=== PATIENT | male | born 1965 | race Caucasian/White ===

== ENCOUNTER 2016-05-11 13:59 | Inpatient (IN) | payer OTHER ==
[2016-05-11 17:07] VITALS: BMI 27.4
--- NOTE | 2016-05-11 18:15 | HP ---
Admission [facility] Chief Complaint: I AM HERE FOR REHAB FROM XANAX AND COCAINE,MMTP 110 MGS/DAY,LAST MEDICATED TODAY BIPOLAR DISORDER 1 NICOTINE DEPENDENCE DISCHARGE FROM [place] TODAY LONGEST PERIOD SOBRIETY 7 YEARS Allergies/Adverse Reactions: Allergies Allergy/AdvReac Type Severity Reaction Status Date / Time penicillin G Allergy Severe Rash Verified 05/11/16 18:05 History of Present Illness: THIS 50 YEARS OLD MALE WITH XANAX AND COCAINE DEPENDENCE ,MMTP 110 MGS/DAY,LAST MEDICATED TODAY DISCHARGE FOR [facility] TODAY Exam Limitations: No Limitations - Ebola screening Have you traveled outside of the country in the last 21 days: No Have you been sick,other than usual withdrawal symptoms: No - Review of Systems Constitutional: No Symptoms Reported EENT: reports: No Symptoms Reported Respiratory: reports: No Symptoms reported Cardiac: reports: No Symptoms Reported GI: reports: No Symptoms Reported : reports: No Symptoms Reported Musculoskeletal: reports: No Symptoms Reported Integumentary: reports: No Symptoms Reported Neuro: reports: No Symptoms reported Endocrine: reports: No Symptoms Reported Hematology: reports: No Symptoms Reported Psychiatric: reports: Judgement Intact, Mood/Affect Appropiate, Orientated x3, other (BIPOLAR 1 DISODER) Patient History - Patient Medical History Hx Anemia: No Hx Asthma: No Hx Chronic Obstructive Pulmonary Disease (COPD): No Hx Cancer: No Hx Cardiac Disorders: No Hx Congestive Heart Failure: No Hx Hypertension: No Hx Hypercholesterolemia: No Hx Pacemaker: No HX Cerebrovascular Accident: No Hx Seizures: No Hx Dementia: No Hx Diabetes: No Hx Gastrointestinal Disorders: No Hx Liver Disease: No Hx Genitourinary Disorders: No Hx Sexually Transmitted Disorders: No Hx Renal Disease (ESRD): No Hx Thyroid Disease: No Hx Human Immunodeficiency Virus (HIV): No (01/27 NEGATIVE) Hx Hepatitis C: Yes (completed vikeira) Hx Depression: Yes Hx Suicide Attempt: No Hx Bipolar Disorder: Yes Hx Schizophrenia: No Other Medical History: NO SUICIDAL,NO HOMICIDAL - Patient Surgical History Past Surgical History: Yes Hx Neurologic Surgery: No Hx Cataract Extraction: No Hx Cardiac Surgery: No Hx Lung Surgery: No Hx Breast Surgery: No Hx Breast Biopsy: No Hx Abdominal Surgery: Yes (hernia repair RIGHT INGUINAL) Hx Appendectomy: No Hx Cholecystectomy: No Hx Genitourinary Surgery: No Hx Section: No Hx Orthopedic Surgery: Yes ( LEFT LITTLE FINGER [facility]) Other Surgical History: hernia repair finger reattachment Anesthesia Reaction: No - PPD History Previous Implant?: Yes Documented Results: Negative w/proof Implanted On Prior [facility] Admission?: Yes Date: 11/20/15 PPD to be Administered?: No - Smoking Cessation Smoking history: Current every day smoker Have you smoked in the past 12 months: Yes Aproximately how many cigarettes per day: 10 Cigars Per Day: 0 Hx Chewing Tobacco Use: No Initiated information on smoking cessation: Yes 'Breaking Loose' booklet given: 05/11/16 - Substance & Tx. History Hx Alcohol Use: No Hx Substance Use: Yes Substance Use Type: Cocaine, Tranquilizers Hx Substance Use Treatment: Yes ([facility] DISCHARGED TODAY) - Substances Abused Crack Route: Smoking Frequency: Daily Amount used: $100 Age of first use: 15 Date of Last Use: 05/06/16 Ectasy Route: Oral Frequency: 1-3 times last 30 days Amount used: 1 pill Age of first use: 18 Date of Last Use: 04/20/16 xanax or klonopin Route: Oral Frequency: Daily Amount used: 8-10mg Age of first use: 14 Date of Last Use: 05/06/16 Family Disease History - Family Disease History Family Disease History: Other: Father (), Mother (completely healthy), Brother ( from drugs etoh), Sister ( from drug etoh) Admission Physical Exam [facility] - Vital Signs Vital Signs: Vital Signs - 24 hr 05/11/16 17:05 Temperature 97.9 F Pulse Rate 76 Respiratory 20 Rate Blood Pressure 125/75 - Physical General Appearance: Yes: Within Normal Limits, No Apparent Distress, Nourished, Moderate Distress HEENTM: Yes: Within Normal Limits, Hearing grossly Normal, Normal ENT Inspection , MARY Respiratory: Yes: Lungs Clear, Normal Breath Sounds, No Respiratory Distress Neck: Yes: Within Normal Limits Breast: Yes: Within Normal Limits Cardiology: Yes: Within Normal Limits, Regular Rhythm, Regular Rate, S1, S2 Abdominal: Yes: Within Normal Limits, Normal Bowel Sounds, Non Tender, Flat, Soft Genitourinary: Yes: Within Normal Limits Back: Yes: Within Normal Limits Musculoskeletal: Yes: Within Normal Limits Extremities: Yes: Within Normal Limits, Normal Capillary Refill, Normal Inspection, Normal Range of Motion Neurological: Yes: tutoring assistant II-XII NML intact, Fully Oriented, Alert, Motor Strength 5/5 Integumentary: Yes: Within Normal Limits Lymphatic: Yes: Within Normal Limits - Diagnostic (1) Benzodiazepine dependence Current Visit: No Status: Acute (2) Cocaine dependence Current Visit: No Status: Acute Qualifiers: Substance use status: uncomplicated Qualified Code(s): F14.20 - Cocaine dependence, uncomplicated (3) Nicotine dependence Current Visit: No Status: Acute Qualifiers: Nicotine product type: cigarettes Substance use status: uncomplicated Qualified Code(s): F17.210 - Nicotine dependence, cigarettes, uncomplicated (4) Opioid dependence on agonist therapy Current Visit: No Status: Acute (5) Bipolar disorder Current Visit: No Status: Suspected Comment: Historical diagnosis. Cleared for Admission [facility] - Detox or Rehab Claeared for Rehab Admission: Yes [facility] Breath Alcohol Content Breath Alcohol Content: 0 Urine Drug Screen - Results Drug Screen Negative: No Urine Drug Screen Results: JENNIFER-Cocaine, OPI-Opiates, BZO-Benzodiazepines, MTD- Methadone
[2016-05-11] MEDS ORDERED: ACETAMINOPHEN 325 MG TABLET (FP) PO PRN (18:24)
[2016-05-11] MEDS ORDERED: MAG HYDROX/AL HYDROX/SIMETH 30 ML UNIT-DOSE CUP PO PRN (18:24)
[2016-05-11] MEDS ORDERED: guaiFENesin/D-METHORPHAN HB 10 ML UNIT-DOSE CUPS PO PRN (18:24)
[2016-05-11] MEDS ORDERED: P-EPHED 60MG/TRIPROLIDI 2.5MG TABLET PO PRN (18:24)
[2016-05-11] MEDS ORDERED: MAGNESIUM HYDROX 2400MG/30ML ORAL SUSPENSION 30 ML CUP PO PRN (18:24)
[2016-05-11] MEDS ORDERED: MENTHOL/PHENOL 1 EACH UD MM PRN (18:24)
[2016-05-11] MEDS ORDERED: IBUPROFEN 400 MG TABLET (FP) PO PRN (18:24)
[2016-05-11] MEDS ORDERED: hydrOXYzine PAMOATE 50 MG CAPSULE (FP) PO PRN (18:24)
[2016-05-11] MEDS ORDERED: MAGNESIUM CITRATE 300 ML BOTTLE PO PRN (18:24)
[2016-05-11] MEDS: NICOTINE 21 MG/24 HOURS TOPICAL PATCH TD SCH (22:16)
[2016-05-11] MEDS: diphenhydrAMINE HCL 50 MG CAPSULE PO PRN (22:54)
[2016-05-11] MEDS: THIAMINE HCL 100 MG TABLET (FP) PO SCH (22:54)
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
[2016-05-12] MEDS: PRENATAL VITAMINS W/ FOLIC ACID TABLET (FP) PO SCH (10:19)
[2016-05-12] MEDS: NICOTINE 21 MG/24 HOURS TOPICAL PATCH TD SCH (10:20)
[2016-05-12 10:25] LABS: MCH 29.5 pg (25.7-33.7); MCHC 34.5 g/dl (32.0-35.9); MEAN CELL VOLUME 85.5 fl (80-96); MEAN PLT VOLUME 11.7 fl (7.5-11.1); PLATELET COUNT 124 K/MM3 (134-434); RDW 13.5 % (11.9-15.9); WHITE BLOOD COUNT 5.3 K/mm3 (4.0-10.0)
[2016-05-12 10:33] LABS: ALBUMIN 3.8 g/dl (3.4-5.0); CALCIUM 8.6 mg/dL (8.5-10.1); GLUCOSE,RANDOM 166 mg/dL (74-106)
[2016-05-12 10:36] LABS: ALK PHOS 79 U/L (45-117); ANION GAP 9 (8-16); BILIRUBIN,TOTAL 0.2 mg/dL (0.2-1.0); CO2 30 mmol/L (21-32); CREATININE 0.9 mg/dL (0.7-1.3); SGOT/AST 16 U/L (15-37); SGPT/ALT 29 U/L (12-78); TOT PROT 7.3 g/dl (6.4-8.2)
[2016-05-12 10:57] LABS: HIV 1 & 2 AB NEGATIVE; HIV 1 AGp24 NEGATIVE
[2016-05-12] MEDS ORDERED: METHADONE HCL 10 MG TABLET PO ONE (11:00)
[2016-05-12] MEDS ORDERED: METHADONE 80 MG, METHADONE 30 MG PO ONE (11:10)
[2016-05-12] MEDS ORDERED: METHADONE HCL 10 MG TABLET ONE (11:18)
[2016-05-12] MEDS ORDERED: METHADONE HCL 40 MG DISPERSABLE TABLET ONE (11:19)
--- NOTE | 2016-05-12 12:33 | EKG ---
Test Reason : Blood Pressure : / mmHG Vent. Rate : 076 BPM Atrial Rate : 076 BPM P-R Int : 134 ms QRS Dur : 094 ms QT Int : 404 ms P-R-T Axes : 064 046 050 degrees QTc Int : 454 ms NORMAL SINUS RHYTHM SEPTAL INFARCT , AGE UNDETERMINED ABNORMAL ECG NO PREVIOUS ECGS AVAILABLE Confirmed by ARISTIDES ADAMS, RYANN ([id number]) on 05/12/2016 12:33:17 PM Referred By: Christy Saavedra Confirmed By:RYANN IRVING MD
--- NOTE | 2016-05-12 13:31 | PN ---
[facility] Progress Note Note: pt with + rpr 1:8 treated with doxycycline in dec 2015. Present titer 1:4 therefore no tx indicated at this time .
[2016-05-12] MEDS: THIAMINE HCL 100 MG TABLET (FP) PO SCH (21:11)
[2016-05-12] MEDS: QUEtiapine FUMARATE 200 MG TABLET PO SCH (21:11)
[2016-05-12] MEDS: GABAPENTIN 100 MG CAPSULE (FP) PO SCH (21:11)
[2016-05-13] MEDS ORDERED: METHADONE HCL 40 MG DISPERSABLE TABLET ONE (04:30)
[2016-05-13] MEDS ORDERED: METHADONE HCL 10 MG TABLET ONE (04:30)
[2016-05-13] MEDS ORDERED: METHADONE HCL 10 MG TABLET PO SCH (06:00)
[2016-05-13] MEDS: METHADONE 80 MG, METHADONE 30 MG PO SCH (06:37)
[2016-05-13] MEDS: PRENATAL VITAMINS W/ FOLIC ACID TABLET (FP) PO SCH (10:14)
[2016-05-13] MEDS: NICOTINE 21 MG/24 HOURS TOPICAL PATCH TD SCH (10:14)
--- NOTE | 2016-05-13 13:46 | PN ---
[facility] Progress Note Note: initial glucose is 166,bgm monitoring monitoring bidac
[2016-05-13] MEDS: THIAMINE HCL 100 MG TABLET (FP) PO SCH (21:15)
[2016-05-13] MEDS: QUEtiapine FUMARATE 200 MG TABLET PO SCH (21:15)
[2016-05-13] MEDS: GABAPENTIN 100 MG CAPSULE (FP) PO SCH (21:15)
[2016-05-14] MEDS ORDERED: METHADONE HCL 10 MG TABLET ONE (04:11)
[2016-05-14] MEDS ORDERED: METHADONE HCL 40 MG DISPERSABLE TABLET ONE (04:11)
[2016-05-14] MEDS: METHADONE 80 MG, METHADONE 30 MG PO SCH (06:11)
[2016-05-14] MEDS: NICOTINE 21 MG/24 HOURS TOPICAL PATCH TD SCH (10:16)
[2016-05-14] MEDS: PRENATAL VITAMINS W/ FOLIC ACID TABLET (FP) PO SCH (10:16)
[2016-05-14] MEDS: GABAPENTIN 100 MG CAPSULE (FP) PO SCH (21:16)
[2016-05-14] MEDS: THIAMINE HCL 100 MG TABLET (FP) PO SCH (21:16)
[2016-05-14] MEDS: QUEtiapine FUMARATE 200 MG TABLET PO SCH (21:16)
[2016-05-14] MEDS: diphenhydrAMINE HCL 50 MG CAPSULE PO PRN (21:16)
[2016-05-15] MEDS ORDERED: METHADONE HCL 40 MG DISPERSABLE TABLET ONE (05:19)
[2016-05-15] MEDS ORDERED: METHADONE HCL 10 MG TABLET ONE (05:19)
[2016-05-15] MEDS: METHADONE 80 MG, METHADONE 30 MG PO SCH (06:07)
[2016-05-15] MEDS: NICOTINE 21 MG/24 HOURS TOPICAL PATCH TD SCH (10:27)
[2016-05-15] MEDS: PRENATAL VITAMINS W/ FOLIC ACID TABLET (FP) PO SCH (10:28)
[2016-05-15] MEDS: GABAPENTIN 100 MG CAPSULE (FP) PO SCH (21:27)
[2016-05-15] MEDS: THIAMINE HCL 100 MG TABLET (FP) PO SCH (21:27)
[2016-05-15] MEDS: diphenhydrAMINE HCL 50 MG CAPSULE PO PRN (21:27)
[2016-05-15] MEDS: QUEtiapine FUMARATE 200 MG TABLET PO SCH (21:27)
[2016-05-16] MEDS ORDERED: METHADONE HCL 40 MG DISPERSABLE TABLET ONE (04:50)
[2016-05-16] MEDS ORDERED: METHADONE HCL 10 MG TABLET ONE (04:50)
[2016-05-16] MEDS: METHADONE 80 MG, METHADONE 30 MG PO SCH (06:40)
[2016-05-16] MEDS: NICOTINE 21 MG/24 HOURS TOPICAL PATCH TD SCH (10:19)
[2016-05-16] MEDS: PRENATAL VITAMINS W/ FOLIC ACID TABLET (FP) PO SCH (10:23)
[2016-05-16] MEDS: THIAMINE HCL 100 MG TABLET (FP) PO SCH (21:12)
[2016-05-16] MEDS: GABAPENTIN 100 MG CAPSULE (FP) PO SCH (21:12)
[2016-05-16] MEDS: QUEtiapine FUMARATE 200 MG TABLET PO SCH (21:13)
[2016-05-17] MEDS ORDERED: METHADONE HCL 40 MG DISPERSABLE TABLET ONE (04:05)
[2016-05-17] MEDS ORDERED: METHADONE HCL 10 MG TABLET ONE (04:05)
[2016-05-17] MEDS: METHADONE 80 MG, METHADONE 30 MG PO SCH (06:06)
[2016-05-17] MEDS: NICOTINE 21 MG/24 HOURS TOPICAL PATCH TD SCH (10:21)
[2016-05-17] MEDS: PRENATAL VITAMINS W/ FOLIC ACID TABLET (FP) PO SCH (10:21)
[2016-05-17] MEDS: QUEtiapine FUMARATE 200 MG TABLET PO SCH (21:17)
[2016-05-17] MEDS: THIAMINE HCL 100 MG TABLET (FP) PO SCH (21:17)
[2016-05-17] MEDS: GABAPENTIN 100 MG CAPSULE (FP) PO SCH (21:18)
[2016-05-18] MEDS ORDERED: METHADONE HCL 40 MG DISPERSABLE TABLET ONE (04:06)
[2016-05-18] MEDS ORDERED: METHADONE HCL 10 MG TABLET ONE (04:06)
[2016-05-18] MEDS: METHADONE 80 MG, METHADONE 30 MG PO SCH (06:29)
[2016-05-18] MEDS: PRENATAL VITAMINS W/ FOLIC ACID TABLET (FP) PO SCH (10:35)
[2016-05-18] MEDS: NICOTINE 21 MG/24 HOURS TOPICAL PATCH TD SCH (10:35)
[2016-05-18] MEDS: QUEtiapine FUMARATE 200 MG TABLET PO SCH (21:54)
[2016-05-18] MEDS: THIAMINE HCL 100 MG TABLET (FP) PO SCH (21:54)
[2016-05-18] MEDS: GABAPENTIN 100 MG CAPSULE (FP) PO SCH (21:54)
[2016-05-18] MEDS: diphenhydrAMINE HCL 50 MG CAPSULE PO PRN (21:54)
[2016-05-19] MEDS ORDERED: METHADONE HCL 10 MG TABLET ONE (04:04)
[2016-05-19] MEDS ORDERED: METHADONE HCL 40 MG DISPERSABLE TABLET ONE (04:04)
[2016-05-19] MEDS: METHADONE 80 MG, METHADONE 30 MG PO SCH (05:59)
[2016-05-19 06:47] VITALS: BP 118/77; PULSE 96; TEMP 98.6
--- NOTE | 2016-05-19 10:31 | PN ---
Psychiatric Progress Note Vital Signs: Vital Signs Period Temp Pulse Resp BP Sys/Keith Pulse Ox Last 24 Hr 98.6 F 96 18-20 118/77 Date of Session: 05/19/16 Chief Complaint:: Psychiatrist Discharge Note HPI: Patient addressing Cocaine, Sedative Dependence comorbid with Opoid Dependence on AgonistTherapy, Nicotine Dependence and Bipolar Disorder ROS: Hep C was medically managed Current Medications: Active Medications Generic Name Dose Route Start Last Admin Trade Name Freq PRN Reason Stop Dose Admin Acetaminophen 650 mg 05/11/16 18:24 Tylenol - PO Q4H PRN PAIN Al Hydroxide/Mg Hydroxide 30 ml 05/11/16 18:24 Mylanta Oral Suspension - PO Q6H PRN DYSPEPSIA Diphenhydramine HCl 50 mg 05/11/16 18:24 05/18/16 21:54 Benadryl - PO 50 mg HSMR1 PRN Administration INSOMNIA Eucalyptus/Menthol/Phenol/Sorbitol 1 each 05/11/16 18:24 Cepastat Lozenge - MM Q4H PRN SORE THROAT Gabapentin 100 mg 05/12/16 22:00 05/18/16 21:54 Neurontin - PO 100 mg HS ERICA Administration Guaifenesin 10 ml 05/11/16 18:24 Robitussin Dm - PO Q6H PRN COUGH Hydroxyzine Pamoate 50 mg 05/11/16 18:24 Vistaril - PO Q4H PRN AGITATION Ibuprofen 400 mg 05/11/16 18:24 Motrin - PO Q6H PRN SEVERE PAIN Loperamide HCl 4 mg 05/11/16 18:24 Imodium - PO Q6H PRN DIARRHEA Magnesium Citrate 300 ml 05/11/16 18:24 Citroma - PO Q48H PRN CONSTIPATION Magnesium Hydroxide 30 ml 05/11/16 18:24 Milk Of Magnesia - PO DAILY PRN CONSTIPATION Methadone HCl 80 mg/ Methadone 110 mg 05/19/16 06:00 05/19/16 05:59 HCl 30 mg PO 05/25/16 05:59 110 mg DAILY@0600 ERICA Administration Nicotine 21 mg 05/11/16 19:00 05/18/16 10:35 Nicoderm Patch - TD 21 mg DAILY ERICA Administration Multivit/Folic Acid/Iron 1 tab 05/12/16 10:00 05/18/16 10:35 Vitamins (Sjr) - PO 1 tab DAILY ERICA Administration Pseudoephedrine/Triprolidine 1 combo 05/11/16 18:24 Actifed - PO TID PRN NASAL CONGESTION Quetiapine Fumarate 200 mg 05/12/16 22:00 05/18/16 21:54 Seroquel - PO 200 mg HS ERICA Administration Thiamine HCl 100 mg 05/11/16 22:00 05/18/16 21:54 Vitamin B1 - PO 100 mg HS ERICA Administration Current Side Effect: No Lab tests ordered: Yes Lab tests reviewed: Yes Provider note:: Patient will complete this program on 05/20/16. He has met his treatment goals and will continue to address his issues in outpatient treatment at [facility]. Told functional tester typewriters that from his participation in this program , he has learned to identify and deal with his triggers. He responded well to Seroquel 200 mg po HS and Gabapentin 100 mg po HS. Scripts for 30 days supply of medications will be electronically transmitted to. He is stable for discharge on 05/20/16 Total face to face time:: 35 Mental Status Exam - Mental Status Exam Alert and Oriented to: Time, Place, Person Cognitive Function: Fair Patient Appearance: Well Groomed Mood: Hopeful, Euthymic Affect: Appropriate Patient Behavior: Cooperative Speech Pattern: Clear Voice Loudness: Normal Thought Process: Intact Thought Disorder: Not Present Hallucinations: Denies Suicidal Ideation: Denies Homicidal Ideation: Denies Insight/Judgement: Fair Sleep: Fair Appetite: Good Muscle strength/Tone: Normal Gait/Station: Normal Psychiatric Treatment Plan - Problem List (1) Cocaine dependence Current Visit: No Qualifiers: Substance use status: uncomplicated Qualified Code(s): F14.20 - Cocaine dependence, uncomplicated (2) Sedative hypnotic or anxiolytic dependence Current Visit: Yes (3) Opioid dependence on agonist therapy Current Visit: No (4) Nicotine dependence Current Visit: No Qualifiers: Nicotine product type: cigarettes Substance use status: uncomplicated Qualified Code(s): F17.210 - Nicotine dependence, cigarettes, uncomplicated (5) Bipolar disorder Current Visit: No Comment: Historical diagnosis. (6) Hepatitis C Current Visit: Yes Initial treatment plan: Patient will be discharged tomorrow and referred back to [facility] for outpatient treatment
[2016-05-19] MEDS: NICOTINE 21 MG/24 HOURS TOPICAL PATCH TD SCH (10:47)
[2016-05-19] MEDS: PRENATAL VITAMINS W/ FOLIC ACID TABLET (FP) PO SCH (10:47)
[2016-05-19] MEDS: LOPERAMIDE HCL 2 MG CAPSULE PO PRN ×2 (14:23→21:37)
[2016-05-19 20:59] LABS: URINE APPEARANCE CLEAR; URINE BILIRUBIN NEGATIVE (NEGATIVE); URINE BLOOD NEGATIVE (NEGATIVE); URINE COLOR DKYELLOW; URINE GLUCOSE (UA) NEGATIVE (NEGATIVE); URINE KETONE NEGATIVE (NEGATIVE); URINE NITRITE NEGATIVE (NEGATIVE); URINE PROTEIN NEGATIVE (NEGATIVE); URINE UROBILINOGEN NEGATIVE E.U./dl (0.2-1.0)
[2016-05-19 21:06] LABS: URINE LEUK ESTERASE TRACE (NEGATIVE)
[2016-05-19 21:12] LABS: CALCIUM OXALATE CRYSTALS MODERATE /hpf (NONE SEEN); URINE HYALINE CAST 7 /lpf; URINE MUCUS RARE; URINE RBC 1 /hpf (0-3); URINE WBC 9 /hpf (3-5)
[2016-05-19] MEDS: QUEtiapine FUMARATE 200 MG TABLET PO SCH (21:23)
[2016-05-19] MEDS: THIAMINE HCL 100 MG TABLET (FP) PO SCH (21:23)
[2016-05-19] MEDS: GABAPENTIN 100 MG CAPSULE (FP) PO SCH (21:23)
[2016-05-20] MEDS ORDERED: METHADONE HCL 40 MG DISPERSABLE TABLET ONE (04:05)
[2016-05-20] MEDS ORDERED: METHADONE HCL 10 MG TABLET ONE (04:05)
[2016-05-20] MEDS: METHADONE 80 MG, METHADONE 30 MG PO SCH (05:50)
[2016-05-20] MEDS: LOPERAMIDE HCL 2 MG CAPSULE PO PRN (05:52)
== END 2016-05-20 06:35 | disposition home or self-care (01) | DRG 772 ==
LOC: YASAS 13:59 → Y3W 18:15
PROVIDERS: ADMIT Psychiatry & Neurology Psychiatry; ATTEND Psychiatry & Neurology Psychiatry
PROC: HZ42ZZZ Group Counseling for Substance Abuse Treatment, Cognitive-Behavioral (ICD-10-PCS; principal; 2016-05-20)
DX: F11.20 Opioid dependence, uncomplicated (principal); F13.20 Sedative, hypnotic or anxiolytic dependence, uncomplicated; F14.20 Cocaine dependence, uncomplicated; F15.20 Other stimulant dependence, uncomplicated; F17.210 Nicotine dependence, cigarettes, uncomplicated; F31.9 Bipolar disorder, unspecified; B18.2 Chronic viral hepatitis C
CPT/HCPCS: 36415; 80053; 81003; 81015; 85027; 86593; 86780; 87389; 93005; 93010